=== PATIENT | male | born 1965 | race Caucasian/White ===

== ENCOUNTER 2016-09-29 17:27 | Observation (INO) | payer BC, OTHER ==
[2016-09-29 17:33] VITALS: BMI 32.1
--- NOTE | 2016-09-29 18:19 | PDOC ---
History of Present Illness <Tristen Womack - Last Filed: 09/29/16 21:33> - General History Source: Patient Exam Limitations: No Limitations - History of Present Illness Initial Comments: 51 yo M history hypothyroid presents with chest pain. He states that since he has been having intermittent episodes of chest pain. The pain is worse with exertion. He sought evaluation twice- both times at urgent care. He was treated for musculoskeletal pain. On the ' visit, he had an abnormal EKG. He states that he was told if the pain was persistent or getting worse, to go to an ER for evaluation. He states that today he climbed 2 flights of stairs, was so winded that he could barely breathe, and had to stop. Last stress test was a few years ago. No recent illness, immobilization, travel. Denies fever, cough. No prior or current history of smoking or illicit drugs. <Rose Samson - Last Filed: 09/29/16 22:14> - General Chief Complaint: Chest Pain Stated Complaint: CHEST PAIN/TROUBLE BREATHING Time Seen by Provider: 09/29/16 18:17 Past History <Tristen Womack - Last Filed: 09/29/16 21:33> - Past Medical History Hypercholesterolemia: Yes Thyroid Disease: Yes (HYPOTHYROIDISM) - Psycho/Social/Smoking Cessation Hx Anxiety: No Suicidal Ideation: No Smoking History: Never smoked Information on smoking cessation initiated: No Hx Alcohol Use: No Drug/Substance Use Hx: No Substance Use Type: None Hx Substance Use Treatment: No <Rose Samson - Last Filed: 09/29/16 22:14> - Past Medical History Allergies/Adverse Reactions: Allergies Allergy/AdvReac Type Severity Reaction Status Date / Time No Known Drug Allergies Allergy Verified 09/29/16 17:33 GRASS/RAGWEED POLLEN Allergy Uncoded 09/29/16 17:33 Home Medications: Ambulatory Orders Hydrocortisone 20 mg PO DAILY 05/03/15 Levothyroxine [Synthroid -] 50 mcg PO DAILY 05/03/15 Testosterone [Androgel] 75 gm TD DAILY 05/03/15 Review of Systems - Review of Systems Able to Perform ROS?: Yes Comments:: GENERAL/CONSTITUTIONAL: No fever or chills. No weakness. HEAD, EYES, EARS, NOSE AND THROAT: No change in vision. No ear pain or discharge. No sore throat. CARDIOVASCULAR: +Chest pain and shortness of breath. RESPIRATORY: No cough, wheezing, or hemoptysis. GASTROINTESTINAL: No nausea, vomiting, diarrhea or constipation. GENITOURINARY: No dysuria, frequency, or change in urination. MUSCULOSKELETAL: No joint or muscle swelling or pain. No neck or back pain. SKIN: No rash NEUROLOGIC: No headache, vertigo, loss of consciousness, or change in strength/ sensation. ENDOCRINE: No increased thirst. No abnormal weight change. HEMATOLOGIC/LYMPHATIC: No anemia, easy bleeding, or history of blood clots. ALLERGIC/IMMUNOLOGIC: No hives or skin allergy. <Rose Samson - Last Filed: 09/29/16 22:14> *Physical Exam - Vital Signs Last Vital Signs Temp Pulse Resp BP Pulse Ox 98 F 84 22 142/86 98 09/29/16 17:28 09/29/16 20:25 09/29/16 20:25 09/29/16 20:25 09/29/16 20:25 <Tristen Womack - Last Filed: 09/29/16 21:33> - Vital Signs Last Vital Signs Temp Pulse Resp BP Pulse Ox 98 F 86 18 157/83 97 09/29/16 17:28 09/29/16 17:28 09/29/16 17:28 09/29/16 17:28 09/29/16 17:28 - Physical Exam Comments: GENERAL: Awake, alert, and fully oriented, in no acute distress HEAD: No signs of trauma EYES: PERRLA, EOMI, sclera anicteric, conjunctiva clear ENT: Auricles normal inspection, hearing grossly normal, nares patent, oropharynx clear without exudates. Moist mucosa NECK: Normal ROM, supple, no lymphadenopathy, JVD, or masses LUNGS: Breath sounds equal, clear to auscultation bilaterally. No wheezes, and no crackles HEART: Regular rate and rhythm, normal S1 and S2, no murmurs, rubs or gallops ABDOMEN: Soft, nontender, normoactive bowel sounds. No guarding, no rebound. No masses EXTREMITIES: Normal range of motion, no edema. No clubbing or cyanosis. No cords , erythema, or tenderness NEUROLOGICAL: Cranial nerves II through XII grossly intact. Normal speech, normal gait SKIN: Warm, Dry, normal turgor, no rashes or lesions noted. <Rose Samson - Last Filed: 09/29/16 22:14> Heart Score/ECG Review - ECG Impressions Comment:: EKG read 17:37- NSR 90 bpm, inv T III and aVF. Flattened T waves V4-V6 Compared with EKG from 09/21/16 urgent care (paper copy from patient)- Similar finding in III and aVF. T waves in V4-6 were normal on 09/21. <Rose Samson - Last Filed: 09/29/16 22:14> ED Treatment Course - LABORATORY CBC & Chemistry Diagram: 09/29/16 18:08 09/29/16 18:08 - ADDITIONAL ORDERS Additional order review: Laboratory Results 09/29/16 09/29/16 18:08 18:08 INR 0.98 D-Dimer > 5000 H Sodium 138 Potassium 4.5 Chloride 102 Carbon Dioxide 31 Anion Gap 5 L BUN 15 Creatinine 1.3 D Creat Clearance w eGFR 58.43 Random Glucose 107 H D Calcium 8.8 Magnesium 2.0 Total Bilirubin 0.6 AST 37 D ALT 54 D Alkaline Phosphatase 48 Troponin I < 0.02 Total Protein 7.6 Albumin 4.3 09/29/16 18:08 RBC 5.88 H D MCV 90.9 MCHC 32.5 RDW 14.3 D MPV 9.4 Neutrophils % 64.6 D Lymphocytes % 25.2 D Monocytes % 7.2 Eosinophils % 2.3 Basophils % 0.7 - Medications Given in the ED: ED Medications Discontinued Medications Generic Name Dose Route Start Last Admin Trade Name Mynorq PRN Reason Stop Dose Admin Aspirin 324 mg 09/29/16 19:01 09/29/16 19:09 Asa - PO 09/29/16 19:02 324 mg ONCE ONE Administration Sodium Chloride 1,000 mls @ 1,000 mls/hr 09/29/16 18:46 09/29/16 19:01 Normal Saline - IV 09/29/16 19:45 1,000 mls/hr ASDIR STA Administration <Tristen Womack - Last Filed: 09/29/16 21:33> - LABORATORY CBC & Chemistry Diagram: 09/29/16 18:08 09/29/16 18:08 - RADIOLOGY Radiology Studies Ordered: Category Date Time Status CHEST X-RAY PORTABLE* [RAD] Stat Radiology 09/29/16 18:07 Ordered <Rose Samson - Last Filed: 09/29/16 22:14> Medical Decision Making - Medical Decision Making 09/29/16 21:25 Dr. Cavazos was called regarding the patient at 9:20PM and 9:30pm, no message could be left due to mailbox being full. Dr. Cavazos was consulted regarding the patient at 9:34pm [phone] <Tristen Womack - Last Filed: 09/29/16 21:33> - Medical Decision Making 09/29/16 19:[address] Rizvi. Some labs are still pending, but his D- dimer has returned at >5000. I have ordered CTA chest. CBC shows polycythemia, which is unexplained. No recent dehydration, no history of smoking. Unclear if chest pain is due to blood viscosity, ACS, PE. To be admitted for further testing. <Rose Samson - Last Filed: 09/29/16 22:14> *DC/Admit/Observation/Transfer <Tristen Womack - Last Filed: 09/29/16 21:33> <Rose Samson - Last Filed: 09/29/16 22:14> Diagnosis at time of Disposition: Chest pain Qualifiers: Chest pain type: precordial chest pain Qualified Code(s): R07.2 - Precordial pain - Discharge Dispostion Condition at time of disposition: Stable
[2016-09-29 18:30] LABS: BASOPHIL 0.7 % (0-2.0); EOSINOPHIL 2.3 % (0-4.5); MCH 29.6 pg (25.7-33.7); MCHC 32.5 g/dl (32.0-35.9); MEAN CELL VOLUME 90.9 fl (80-96); MEAN PLT VOLUME 9.4 fl (7.5-11.1); NEUTROPHILS 64.6 % (42.8-82.8); PLATELET COUNT 277 K/MM3 (134-434); RDW 14.3 % (11.9-15.9); WHITE BLOOD COUNT 10.3 K/mm3 (4.0-10.0)
[2016-09-29 18:42] LABS: INR 0.98 (0.82-1.09)
[2016-09-29] MEDS ORDERED: SODIUM CHLORIDE 1,000 ML IV STA (18:46)
[2016-09-29] MEDS ORDERED: ASPIRIN 81 MG CHEWABLE TABLETS PO ONE (19:01)
[2016-09-29] MEDS ORDERED: ASPIRIN 81 MG CHEWABLE TABLETS ONE (19:02)
[2016-09-29 19:03] LABS: D-DIMER > 5000 ng/ml (<200-235)
[2016-09-29 19:19] LABS: ALBUMIN 4.3 g/dl (3.4-5.0); ANION GAP 5 (8-16); BILIRUBIN,TOTAL 0.6 mg/dL (0.2-1.0); CALCIUM 8.8 mg/dL (8.5-10.1); CO2 31 mmol/L (21-32); CREATININE 1.3 mg/dL (0.7-1.3); GLUCOSE,RANDOM 107 mg/dL (74-106); SGPT/ALT 54 U/L (12-78); TOT PROT 7.6 g/dl (6.4-8.2)
[2016-09-29 19:22] LABS: ALK PHOS 48 U/L (45-117); TROPONIN I < 0.02 ng/ml (0.00-0.05)
[2016-09-29 20:09] LABS: SGOT/AST 37 U/L (15-37)
[2016-09-29] MEDS ORDERED: KETOROLAC TROMETHAMINE 30 MG/1 ML VIAL IVPUSH ONE (21:25)
--- NOTE | 2016-09-29 21:26 | PDOC ---
*Physical Exam - Vital Signs Last Vital Signs Temp Pulse Resp BP Pulse Ox 98 F 84 22 142/86 98 09/29/16 17:28 09/29/16 20:25 09/29/16 20:25 09/29/16 20:25 09/29/16 20:25 ED Treatment Course - LABORATORY CBC & Chemistry Diagram: 09/29/16 18:08 09/29/16 18:08 - ADDITIONAL ORDERS Additional order review: Laboratory Results 09/29/16 09/29/16 18:08 18:08 INR 0.98 D-Dimer > 5000 H Sodium 138 Potassium 4.5 Chloride 102 Carbon Dioxide 31 Anion Gap 5 L BUN 15 Creatinine 1.3 D Creat Clearance w eGFR 58.43 Random Glucose 107 H D Calcium 8.8 Magnesium 2.0 Total Bilirubin 0.6 AST 37 D ALT 54 D Alkaline Phosphatase 48 Troponin I < 0.02 Total Protein 7.6 Albumin 4.3 09/29/16 18:08 RBC 5.88 H D MCV 90.9 MCHC 32.5 RDW 14.3 D MPV 9.4 Neutrophils % 64.6 D Lymphocytes % 25.2 D Monocytes % 7.2 Eosinophils % 2.3 Basophils % 0.7 - Medications Given in the ED: ED Medications Discontinued Medications Generic Name Dose Route Start Last Admin Trade Name Freq PRN Reason Stop Dose Admin Aspirin 324 mg 09/29/16 19:01 09/29/16 19:09 Asa - PO 09/29/16 19:02 324 mg ONCE ONE Administration Sodium Chloride 1,000 mls @ 1,000 mls/hr 09/29/16 18:46 09/29/16 19:01 Normal Saline - IV 09/29/16 19:45 1,000 mls/hr ASDIR STA Administration *DC/Admit/Observation/Transfer Diagnosis at time of Disposition: Chest pain Qualifiers: Chest pain type: precordial chest pain Qualified Code(s): R07.2 - Precordial pain - Discharge Dispostion Condition at time of disposition: Stable Admit: Yes
[2016-09-29] MEDS ORDERED: KETOROLAC TROMETHAMINE 30 MG/1 ML VIAL ONE (21:35)
--- NOTE | 2016-09-29 23:29 | HP ---
Admitting History and Physical - Primary Care Physician PCP: Kojo Cavazos - Admission Chief Complaint: chest pain History of Present Illness: 51 yo M history pituitary tumour, s/p resection, on supplements,presents with chest pain. He states that since New Years day he has been having intermittent episodes of chest pain. The pain is worse with exertion. He sought evaluation twice- both times at urgent care. He was treated for musculoskeletal pain. On the 's visit, he had an abnormal EKG. He states that he was told if the pain was persistent or getting worse, to go to an ER for evaluation. He states that today he climbed 2 flights of stairs, was so winded that he could barely breathe, and had to stop. Last stress test was a few years ago. No prior or current history of smoking or illicit drugs. - Past Medical History Endocrine: Yes: Hypothyroidism, Other (pituitary tumour) - Smoking History Smoking history: Never smoked - Alcohol/Substance Use Hx Alcohol Use: No Home Medications - Allergies Allergies/Adverse Reactions: Allergies Allergy/AdvReac Type Severity Reaction Status Date / Time No Known Drug Allergies Allergy Verified 09/29/16 17:33 GRASS/RAGWEED POLLEN Allergy Uncoded 09/29/16 17:33 - Home Medications Home Medications: Ambulatory Orders Hydrocortisone 20 mg PO DAILY 05/03/15 Levothyroxine [Synthroid -] 50 mcg PO DAILY 05/03/15 Testosterone [Androgel] 75 gm TD DAILY 05/03/15 Atorvastatin Ca [Lipitor] 20 mg PO HS #30 tablet 09/30/16 Metoprolol Succinate [Toprol XL -] 25 mg PO DAILY #30 tab.sr.24h 09/30/16 Physical Examination Vital Signs: Vital Signs Temperature 98 F 09/29/16 17:28 Pulse Rate 84 09/29/16 20:25 Respiratory Rate 22 09/29/16 20:25 Blood Pressure 142/86 09/29/16 20:25 O2 Sat by Pulse Oximetry (%) 98 09/29/16 20:25 Constitutional: Yes: No Distress HENT: Yes: Atraumatic Neck: Yes: Supple Cardiovascular: Yes: Regular Rate and Rhythm Respiratory: Yes: CTA Bilaterally Gastrointestinal: Yes: Normal Bowel Sounds Extremities: Yes: WNL Neurological: Yes: Alert, Oriented Imaging - Results Cat Scan: Report Reviewed Problem List - Problems (1) Chest pain Assessment/Plan: admit tele observation serial cardiac enzymes echo cardiology consult prn nitro paste dvt ppx Code(s): R07.9 - CHEST PAIN, UNSPECIFIED Qualifiers: Chest pain type: precordial chest pain Qualified Code(s): R07.2 - Precordial pain (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 Code(s): E23.0 - HYPOPITUITARISM Assessment/Plan Laboratory Tests 09/29/16 09/29/16 09/29/16 18:08 18:08 18:08 WBC 10.3 H D RBC 5.88 H D Hgb 17.4 H D Hct 53.4 H D MCV 90.9 MCHC 32.5 RDW 14.3 D Plt Count 277 MPV 9.4 Neutrophils % 64.6 D Lymphocytes % 25.2 D Monocytes % 7.2 Eosinophils % 2.3 Basophils % 0.7 INR 0.98 D-Dimer > 5000 H Sodium 138 Potassium 4.5 Chloride 102 Carbon Dioxide 31 Anion Gap 5 L BUN 15 Creatinine 1.3 D Creat Clearance w eGFR 58.43 Random Glucose 107 H D Calcium 8.8 Magnesium 2.0 Total Bilirubin 0.6 AST 37 D ALT 54 D Alkaline Phosphatase 48 Creatine Kinase 320 H D Creatine Kinase Index 0.7 CK-MB (CK-2) 2.161 CK-MB (CK-2) Rel Index Troponin I < 0.02 Total Protein 7.6 Albumin 4.3 09/29/16 18:08 WBC RBC Hgb Hct MCV MCHC RDW Plt Count MPV Neutrophils % Lymphocytes % Monocytes % Eosinophils % Basophils % INR D-Dimer Sodium Potassium Chloride Carbon Dioxide Anion Gap BUN Creatinine Creat Clearance w eGFR Random Glucose Calcium Magnesium Total Bilirubin AST ALT Alkaline Phosphatase Creatine Kinase Creatine Kinase Index CK-MB (CK-2) CK-MB (CK-2) Rel Index Cancelled Troponin I Total Protein Albumin
[2016-09-30] MEDS: NITROGLYCERIN 2% OINTMENT - 1GM PACKET TD SCH ×2 (00:30→05:49)
[2016-09-30 01:35] LABS: TROPONIN I < 0.02 ng/ml (0.00-0.05)
[2016-09-30] MEDS: LEVOTHYROXINE NA 50 MCG TABLET (FP) PO SCH ×2 (05:49→06:09)
[2016-09-30 07:14] LABS: BASOPHIL 0.7 % (0-2.0); EOSINOPHIL 2.5 % (0-4.5); MCH 30.5 pg (25.7-33.7); MCHC 33.4 g/dl (32.0-35.9); MEAN CELL VOLUME 91.2 fl (80-96); MEAN PLT VOLUME 9.3 fl (7.5-11.1); NEUTROPHILS 59.5 % (42.8-82.8); PLATELET COUNT 232 K/MM3 (134-434); RDW 14.3 % (11.9-15.9); WHITE BLOOD COUNT 8.9 K/mm3 (4.0-10.0)
[2016-09-30 07:48] LABS: ALBUMIN 3.6 g/dl (3.4-5.0); CALCIUM 8.1 mg/dL (8.5-10.1)
[2016-09-30 07:53] LABS: BILIRUBIN,TOTAL 0.6 mg/dL (0.2-1.0); CREATININE 1.3 mg/dL (0.7-1.3); TOT PROT 6.4 g/dl (6.4-8.2)
[2016-09-30] MEDS ORDERED: PT OWN MED DRAWER 7, Y5N ONE (09:12)
[2016-09-30] MEDS ORDERED: HYDROCORTISONE 20 MG TABLET PO SCH (10:00)
[2016-09-30] MEDS ORDERED: TESTOSTERONE 75 GM TD SCH (10:00)
[2016-09-30 10:26] VITALS: BP 124/58; PULSE 72; TEMP 98
[2016-09-30] MEDS ORDERED: METOPROLOL SUCCINATE 25 MG TAB.SR.24H (FP) PO SCH (11:30)
--- NOTE | 2016-09-30 11:46 | PN ---
Progress Note (short form) - Note Progress Note: Chief Complaint: Events noted notes reviewed, chest pain syndrome History of Present Illness: Seen and examined on telemetry. Full consult dictated Medications: Current Medications Hydrocortisone (Cortef -) 20 mg PO DAILY [facility] Last Admin: 09/30/16 09:59 Dose: 20 mg Levothyroxine Sodium (Synthroid -) 50 mcg PO DAILY@0700 [facility] Last Admin: 09/30/16 06:09 Dose: Not Given Non-Formulary Medication (Testosterone [Androgel]) 75 gm TD DAILY [facility] Review of Systems - Review of Systems Constitutional: No symptoms reported Respiratory: denies: Cough or Sputum Production Cardiovascular: As noted above Gastrointestinal: denies Nausea, Vomiting, Diarrhea, Constipation or Abdominal Pain Genitourinary: No symptoms reported Musculoskeletal: No symptoms reported Endocrine: No symptoms reported Vital Signs: Last Vital Signs Temp Pulse Resp BP Pulse Ox 98 F 72 18 124/58 98 09/30/16 10:00 09/30/16 10:00 09/30/16 10:00 09/30/16 10:00 09/29/16 20:25 Constitutional: No Distress Neck: Supple Negative JVD No Bruit Respiratory: Clear to A&P Bilaterally Cardiovascular: S1 S2 Regular Rate and Rhythm No Murmurs Clicks or Gallops Gastrointestinal: Soft Benign Normal Bowel Sounds Ext: Negative Edema Labs: Troponin, BNP 09/29/16 09/30/16 18:08 00:30 Troponin I < 0.02 < 0.02 CBC, BMP 09/30/16 05:35 09/30/16 05:35 INR, PTT INR 0.98 (0.82-1.09) 09/29/16 18:08 Assessment/Plan ASSESSMENT: 1. Chest pain syndrome clinical presentation is suggestive for CAD angina pectoris 2. 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 Add Toprol XL 2. Add ASA 3. Obtain fasting lipid profile and initiate therapy with Lipitor 4. Echocardiography for evaluation of LV size and function 5. Stress Echocardiography for evaluation of the above noted presentation Rajni Vargas M.D.
--- NOTE | 2016-09-30 13:07 | CONS ---
DATE OF CONSULTATION: 09/30/2016 REQUESTING PHYSICIAN: Kojo Cavazos MD CHIEF COMPLAINT: Chest pain, cardiovascular evaluation. HISTORY: A 51-year-old male with known history of panhypopituitarism post pituitary tumor resection on supplemental therapy, hypercholesterolemia currently on no therapy who denied hypertensive cardiovascular disease, diabetes mellitus, tobacco abuse, or family history of premature coronary artery disease who presented to [facility] for evaluation of persistent chest discomfort, which has been noted for the last 10 days. The patient was evaluated on 2 separate occasions at an urgent center, and he was treated with nonsteroidal anti-inflammatory without any improvement in the clinical presentation. Upon arrival to the emergency room, sublingual nitroglycerin was administered with alleviation, and this morning the patient received another sublingual nitroglycerin with symptom improvement. Nitroglycerin paste was applied, but the patient reported persistent headache in view of which it was discontinued. Chest discomfort is described as heaviness without any radiation or associated symptomatology, i.e. diaphoresis. The patient denies any dyspnea, orthopnea, paroxysmal or nocturnal dyspnea, or peripheral edema. The patient denies any palpitations, dizziness, lightheadedness, or syncope. PAST MEDICAL HISTORY: Hypercholesterolemia currently on no statin therapy and panhypopituitarism post pituitary adenoma resection. SOCIAL HISTORY: Nonsmoker. FAMILY HISTORY: No family history of premature coronary artery disease. ALLERGIES: No known medical allergies. MEDICAL THERAPY: Currently includes hydrocortisone 20 mg once a day, levothyroxine 50 mcg once a day, testosterone Androgel 75 g daily. REVIEW OF SYSTEMS: Head and Neck: Denies headache, photophobia, blurring of vision. Respiratory: No cough or sputum production. Cardiovascular: As noted above. Gastrointestinal: Denies nausea, vomiting, diarrhea, abdominal discomfort. Genitourinary: No symptoms reported. PHYSICAL EXAMINATION: Vital Signs: Blood pressure 124/58 mmHg, pulse rate 72 beats per minute. Head and Neck: Pupils equal and reactive to light and accommodation. Extraocular movements are intact. Anicteric sclerae. Negative JVD. No bruits appreciated. Chest: Clear to auscultation and percussion. Cardiovascular: S1, S2 regular. No murmurs, clicks, or gallops. Abdomen: Soft, benign. Normoactive bowel sounds. Extremities: Negative edema. Intact distal pulses. No calf tenderness. Electrocardiogram reveals sinus rhythm with inferior T-wave changes and lateral nonspecific T-wave abnormality. Repeat electrocardiogram this a.m. revealed persistence of inferior T-wave changes with improvement in lateral T-wave abnormality. CBC revealed a white blood cell count 8.9, hemoglobin 15.5, platelet count 232. Basic metabolic profile reveals sodium 142, potassium 4.1, BUN 12, creatinine 1.3, glucose 79. CPK and troponin were noted. ASSESSMENT: 1. Chest pain syndrome. Clinical presentation is suggestive of coronary artery disease and angina pectoris. 2. Hypercholesterolemia. 3. History of panhypopituitarism on supplemental therapy. RECOMMENDATION: 1. Addition of beta-blockers. 2. Addition of aspirin. 3. Obtain fasting lipid panel and therapy initiation with Lipitor. 4. Echocardiography for evaluation of left ventricular size and function. 5. Stress echocardiography for evaluation of the above noted clinical presentation. Thank you for your kind referral. ERIN MORIN M.D. [id number]
[2016-09-30] MEDS ORDERED: ACETAMINOPHEN 325 MG TABLET (FP) PO PRN (14:19)
--- NOTE | 2016-09-30 16:41 | DS ---
Physical Examination Vital Signs: Vital Signs Temperature 98 F 09/30/16 10:00 Pulse Rate 72 09/30/16 10:00 Respiratory Rate 18 09/30/16 10:00 Blood Pressure 124/58 09/30/16 10:00 O2 Sat by Pulse Oximetry (%) 98 09/30/16 15:00 Constitutional: Yes: No Distress HENT: Yes: Atraumatic Neck: Yes: Supple Cardiovascular: Yes: Regular Rate and Rhythm Respiratory: Yes: CTA Bilaterally Gastrointestinal: Yes: Normal Bowel Sounds Extremities: Yes: WNL Neurological: Yes: Alert, Oriented Labs: CBC, BMP 09/30/16 05:35 09/30/16 05:35 Discharge Summary Reason For Visit: CHEST PAIN Current Active Problems Chest pain (Acute) Condition: Stable - Home Medications Comprehensive Discharge Medication List: Ambulatory Orders Hydrocortisone 20 mg PO DAILY 05/03/15 Levothyroxine [Synthroid -] 50 mcg PO DAILY 05/03/15 Testosterone [Androgel] 75 gm TD DAILY 05/03/15 Atorvastatin Ca [Lipitor] 20 mg PO HS #30 tablet 09/30/16 Metoprolol Succinate [Toprol XL -] 25 mg PO DAILY #30 tab.sr.24h 09/30/16 dr larkin spoke to RN stress test negative cleared to be discharge
--- NOTE | 2016-09-30 18:06 | EKG ---
Test Reason : Blood Pressure : / mmHG Vent. Rate : 090 BPM Atrial Rate : 090 BPM P-R Int : 150 ms QRS Dur : 078 ms QT Int : 324 ms P-R-T Axes : 033 022 -14 degrees QTc Int : 396 ms NORMAL SINUS RHYTHM T WAVE ABNORMALITY, CONSIDER INFERIOR ISCHEMIA ABNORMAL ECG NO PREVIOUS ECGS AVAILABLE Confirmed by LACY SOLIS MD ([id number]) on 09/30/2016 6:06:31 PM Referred By: Confirmed By:LACY SOLIS MD
--- NOTE | 2016-09-30 18:18 | EKG ---
Test Reason : Blood Pressure : / mmHG Vent. Rate : 074 BPM Atrial Rate : 074 BPM P-R Int : 146 ms QRS Dur : 084 ms QT Int : 350 ms P-R-T Axes : 045 041 -02 degrees QTc Int : 388 ms NORMAL SINUS RHYTHM NONSPECIFIC ST AND T WAVE ABNORMALITY ABNORMAL ECG WHEN COMPARED WITH ECG OF 29-SEP-2016 17:33, Confirmed by LACY SOLIS MD ([id number]) on 09/30/2016 6:18:13 PM Referred By: Sudheer POON Confirmed By:LACY SOLIS MD
[2016-09-30] MEDS ORDERED: ATORVASTATIN CA 20 MG TABLET (FP) PO SCH (22:00)
== END 2016-09-30 17:10 | disposition home or self-care (01) ==
LOC: JER 17:27 → INTOOBSV 21:47 → JERBED 21:47 → UNDOADMOB 21:47 → J4W 23:30 → JERBED 23:43 → J4W 23:43
PROVIDERS: ADMIT Internal Medicine; ATTEND Internal Medicine
DX: R07.2 Precordial pain (principal); E78.00 Pure hypercholesterolemia, unspecified; E23.0 Hypopituitarism
CPT/HCPCS: 36415; 71010-TC; 71275-TC; 80053; 80061; 82550; 82553; 83721; 83735; 84484; 85025; 85379; 85610; 93005; 93010; 93306-TC; 93351; 99285-25; G0378

== ENCOUNTER 2023-11-23 06:56 | Emergency (ER) | payer BC, OTHER ==
[2023-11-23 07:20] VITALS: BP 124/66; PULSE 101; RESP 18; TEMP 98.8; BMI 29.9
== END 2023-11-23 09:25 | disposition home or self-care (01) ==
LOC: JER 06:56
PROC: 0H98XZZ Drainage of Buttock Skin, External Approach (ICD-10-PCS; principal; 2023-11-23)
DX: L02.31 Cutaneous abscess of buttock (principal); R11.0 Nausea; R68.83 Chills (without fever)
CPT/HCPCS: 10060; 99284-25